=== PATIENT | female | born 1985 | race Caucasian/White ===

== ENCOUNTER 2023-08-10 10:54 | Observation (INO) | payer OTHER, SELFPAY ==
[2023-08-10 11:16] VITALS: BP 195/92; BMI 30.3
[2023-08-10 11:16] LABS: Hematocrit 36.1 % (37.0-47.0); Hemoglobin 12.3 g/dL (12.0-16.0); Mean Corp Hgb Conc. 34.1 g/dL (33.0-37.0); Mean Corpuscular Hgb 29.4 pg (27.0-31.0); Mean Corpuscular Volume 86.4 fL (81.0-99.0); Mean Platelet Volume 11.2 fL (7.4-10.4); Platelet Count 186 10^3/uL (130-400); Red Blood Cell Count 4.18 10^6/uL (4.20-5.40); Red Cell Dist. Width 14.4 % (11.5-14.5); White Blood Cell Count 13.1 10^3/uL (4.8-10.8)
[2023-08-10 11:30] LABS: ALT (SGPT) 21 U/L (0-35); AST (SGOT) 33 U/L (14-36); Albumin 3.5 g/dl (3.5-5.0); Alkaline Phosphatase 235 U/L (38-126); Blood Urea Nitrogen 7 mg/dl (7-17); Carbon Dioxide 22 mmol/L (22-30); Chloride 108 mmol/L (98-107); Estimated Creatinine Clearance 113 ml/min; Glucose 72 mg/dl (70-99); Potassium 4.3 mmol/L (3.5-5.1); Sodium 135 mmol/L (135-145); Total Bilirubin 0.6 mg/dl (0.2-1.3); Total Protein 6.3 g/dl (6.3-8.2); eGFR > 60.00
[2023-08-10 12:06] LABS: Protein/creatinine Ratio 1.7; Urine Protein 15 mg/dl
== END 2023-08-10 11:55 | disposition home or self-care (01) ==
LOC: PNTC-IN 10:54
PROVIDERS: ADMITTING PHYSICIAN Obstetrics & Gynecology
DX: O32.1XX0 Maternal care for breech presentation, not applicable or unspecified (principal); O09.813 Supervision of pregnancy resulting from assisted reproductive technology, third trimester; O09.513 Supervision of elderly primigravida, third trimester; Z3A.37 37 weeks gestation of pregnancy
CPT/HCPCS: 59025; 76815; 80053; 82570; 84156; 85027; G0378

== ENCOUNTER 2023-08-11 11:19 | Inpatient (IN) | payer OTHER, SELFPAY ==
[2023-08-11 11:33] VITALS: BP 118/106; BMI 30.1
[2023-08-11 11:52] LABS: Hematocrit 37.1 % (37.0-47.0); Hemoglobin 12.2 g/dL (12.0-16.0); Mean Corp Hgb Conc. 32.9 g/dL (33.0-37.0); Mean Corpuscular Hgb 29.4 pg (27.0-31.0); Mean Corpuscular Volume 89.4 fL (81.0-99.0); Mean Platelet Volume 10.7 fL (7.4-10.4); Platelet Count 213 10^3/uL (130-400); Red Blood Cell Count 4.15 10^6/uL (4.20-5.40); Red Cell Dist. Width 14.5 % (11.5-14.5); White Blood Cell Count 13.1 10^3/uL (4.8-10.8)
[2023-08-11] MEDS: TYLENOL 1000 MG PO (11:54)
[2023-08-11] MEDS: BICITRA 30 ML PO (11:55)
[2023-08-11] MEDS: ANCEF 10 IV (11:55)
[2023-08-11] MEDS: TORADOL 15 MG IV (17:44)
[2023-08-12] MEDS: TORADOL 15 MG IV ×3 (00:44→12:42)
[2023-08-12] MEDS: TYLENOL 650 MG PO ×3 (00:44→17:52)
[2023-08-12 04:40] LABS: Hematocrit 30.2 % (37.0-47.0); Hemoglobin 9.8 g/dL (12.0-16.0); Mean Corp Hgb Conc. 32.5 g/dL (33.0-37.0); Mean Corpuscular Hgb 29.1 pg (27.0-31.0); Mean Corpuscular Volume 89.6 fL (81.0-99.0); Mean Platelet Volume 10.6 fL (7.4-10.4); Platelet Count 208 10^3/uL (130-400); Red Blood Cell Count 3.37 10^6/uL (4.20-5.40); Red Cell Dist. Width 14.1 % (11.5-14.5); White Blood Cell Count 16.6 10^3/uL (4.8-10.8)
[2023-08-12] MEDS: SENOKOT-S 1 TABLET PO (08:06)
--- NOTE | 2023-08-12 09:25 | W.PN.ANS.POP ---
Anesthesia Post Operative
- Anesthesia Post Op Note
Vital Signs Stable-See Nursing Note: Yes
Airway Patent: Yes
Adequate Pain Control: Yes
Change in Mental Status: No
Current Postoperative Nausea & Vomiting: No
Anesthesia Complications: No
General Anesthetic Recall: No
Unplanned Admission: No
Post Op Hydration Adequate: Yes
[2023-08-12] MEDS: FEOSOL 325 MG PO (12:43)
[2023-08-12] MEDS: MOTRIN 600 MG PO (17:53)
[2023-08-13] MEDS: TYLENOL 650 MG PO ×3 (00:53→18:11)
[2023-08-13] MEDS: MOTRIN 600 MG PO ×3 (00:53→18:11)
[2023-08-13] MEDS: SENOKOT-S 1 TABLET PO (08:32)
[2023-08-13] MEDS: FEOSOL 325 MG PO (08:32)
[2023-08-14] MEDS: MOTRIN 600 MG PO ×2 (00:13→08:35)
[2023-08-14] MEDS: TYLENOL 650 MG PO (00:14)
[2023-08-14] MEDS: TRANDATE 200 MG PO (02:45)
[2023-08-14] MEDS: FEOSOL 325 MG PO (08:35)
--- NOTE | 2023-08-14 13:05 | W.DS.TRANS ---
DC Summary - [employer]
-
Discharge Instructions:
Discharge Diagnosis/Procedures s/p csection for arrest disorder; Preeclampsia
without severe features
Diet Regular
Activity No strenuous activity
Driving Restrictions No driving for 2 weeks
Bathing Restrictions OK to Shower
Instructions:
Stand-Alone Forms: LDRP Delivery
LDRP Hypertensive Disorders
Changes to Home Medications: No
Discharge Medications:
DC Medications w/original date entered in [facility]
Feosol 1 tab PO DAILY 08/10/23
1 tab PO DAILY 08/10/23
acetaminophen 325 mg tablet 650 mg (2 x 325 mg) PO Q4HPRN PRN mild pain #0 tabs 08/13/23
ibuprofen 600 mg tablet 600 mg PO Q6HPRN PRN cramps #0 tabs 08/13/23
labetalol 200 mg tablet 200 mg PO BID #60 tabs 08/14/23
Home Medication Changes
Pending Results: Yes
Additional Pending Results:
path report placenta
Total time spent discharging patient (in min): 25
[2023-08-15 15:45] LABS: Syphilis/T. pallidum Ab Reflex Negative (Negative)
== END 2023-08-14 13:53 | disposition home or self-care (01) | DRG 788 ==
LOC: LDRP 11:19
PROVIDERS: ADMITTING PHYSICIAN Obstetrics & Gynecology
PROC: 6A550ZT Pheresis of Cord Blood Stem Cells, Single (ICD-10-PCS; 2023-08-11)
PROC: 10D00Z1 Extraction of Products of Conception, Low, Open Approach (ICD-10-PCS; 2023-08-11)
DX: O32.1XX0 Maternal care for breech presentation, not applicable or unspecified (principal); Z3A.37 37 weeks gestation of pregnancy; Z37.0 Single live birth; O14.04 Mild to moderate pre-eclampsia, complicating childbirth; N97.9 Female infertility, unspecified; G43.909 Migraine, unspecified, not intractable, without status migrainosus; Z83.3 Family history of diabetes mellitus; Z82.49 Family history of ischemic heart disease and other diseases of the circulatory system
CPT/HCPCS: 88307; 36415; 85027; 86780; 86850; 86900; 86901